=== PATIENT | female | born 1995 | race Caucasian/White ===

== ENCOUNTER 2016-03-21 13:58 | Emergency (ER) | payer OTHER ==
[2016-03-21 15:43] VITALS: BP 127/61
--- NOTE | 2016-03-21 16:54 | UC ---
FLU HPI - HPI Summary HPI Summary: sick since yesterday with irritating, productive cough and body aches. Headache. Malaise. At [facility], epidemic flu there. No flu shot. Mild ST. - History of Current Complaint Chief Complaint: UCRespiratory Stated Complaint: ACHY,COUGH,SORE THROAT,FEVER Time Seen by Provider: 03/21/16 16:44 Hx Obtained From: Patient Hx Last Menstrual Period: 03/21/16 Onset/Duration: Gradual Onset Severity Currently: Mild Severity Initially: Mild Associated Signs & Symptoms: Positive: T Max - 99.9, Cough, Sore Throat, Nasal Congestion, Headache Related Hx: Possible Flu/Infectious Exposure - Risk Factors Influenza Risk Factors: Negative - Allergy/Home Medications Allergies/Adverse Reactions: Allergies Allergy/AdvReac Type Severity Reaction Status Date / Time No Known Allergies Allergy Verified 03/21/16 15:43 Home Medications: Home Medications Acetaminophen TAB* [Tylenol TAB*] 650 mg PO Q4H PRN 03/21/16 [History Confirmed 03/21/16] Control 1 tab PO DAILY 03/21/16 [History Confirmed 03/21/16] Ibuprofen TAB* [Motrin TAB* 600 MG] 600 mg PO Q6H PRN 03/21/16 [History Confirmed 03/21/16] PMH/Surg Hx/FS Hx/Imm Hx Previously Healthy: Yes - Surgical History Surgical History: None - Family History Known Family History: Negative: Respiratory Disease - Social History Occupation: Student Lives: Alone - dorm Alcohol Use: Occasionally Substance Use Type: None Smoking Status (MU): Never Smoked Tobacco Review of Systems Constitutional: Fever, Chills, Fatigue Skin: Negative Eyes: Negative ENT: Sore Throat, Nasal Discharge Respiratory: Cough Cardiovascular: Negative Gastrointestinal: Negative Genitourinary: Negative Motor: Negative Neurovascular: Negative Musculoskeletal: Myalgia Neurological: Headache, Weakness Psychological: Negative All Other Systems Reviewed And Are Negative: Yes Physical Exam Triage Information Reviewed: Yes Appearance: Well-Appearing, No Pain Distress, Well-Nourished Vital Signs: Initial Vital Signs Temp 98.6 F 03/21/16 15:41 Pulse 104 03/21/16 15:41 Resp 16 03/21/16 15:41 BP 127/61 03/21/16 15:41 Pulse Ox 100 03/21/16 15:41 Vital Signs Reviewed: Yes Eye Exam: Normal Eyes: Positive: Conjunctiva Clear ENT: Positive: Hearing grossly normal, Pharynx normal, Nasal congestion, TMs normal, Tonsillar swelling - mild. Negative: TM bulging, TM dull, TM red, Tonsillar exudate, Trismus, Muffled/hoarse voice Neck exam: Normal Respiratory Exam: Normal Respiratory: Positive: Lungs clear, Normal breath sounds Cardiovascular Exam: Normal Musculoskeletal Exam: Normal Neurological Exam: Normal Psychological Exam: Normal Skin Exam: Normal Diagnostics - Laboratory Diagnostic Studies Completed/Ordered: fluA pos Flu Course/Dx - Differential Dx/Diagnosis Differential Diagnosis/HQI/PQRI: Influenza, Upper Respiratory Infection Provider Diagnoses: influenza Discharge - Discharge Plan Condition: Stable Disposition: HOME Prescriptions: Benzonatate CAP* [Tessalon CAP*] 100 mg PO TID PRN #30 cap PRN Reason: Cough Patient Education Materials: Influenza (ED) Forms: *School Release Referrals: No Primary Care Phys,NOPCP [Primary Care Provider] -
== END 2016-03-21 17:25 | disposition home or self-care (01) ==
LOC: UCCORT 13:58
DX: J11.1 Influenza due to unidentified influenza virus with other respiratory manifestations (principal)
CPT/HCPCS: 99202; G0463

== ENCOUNTER 2017-04-01 17:32 | Emergency (ER) | payer OTHER ==
[2017-04-01 18:18] VITALS: BP 117/64
--- NOTE | 2017-04-01 19:31 | UC ---
Throat Pain/Nasal Mayo HPI - HPI Summary HPI Summary: 21 y/o female presents to the urgent care c/o sore throat, ALSTON and body aches for the past 4 days. Mild non productive cough w/ chills at times. Pain is 7/ 10 w/ swallowing associated w/ decrease appetite. She is UTD w/ all vaccines. Pt has taken Tylenol PO to alleviate symptoms. Pt dneis SOB, chest pain, abdominal pain, N/V/D - History of Current Complaint Chief Complaint: UCRespiratory Stated Complaint: SORE THROAT Time Seen by Provider: 04/01/17 19:30 Hx Obtained From: Patient Hx Last Menstrual Period: 03/18/17 ?: No Onset/Duration: Gradual Onset, Lasting Days - 4 days, Still Present, Worse Since - yesterday Severity: Moderate Pain Intensity: 7 Pain Scale Used: 0-10 Numeric Cough: Nonproductive Associated Signs & Symptoms: Positive: Dysphagia, Fever - Epiglottits Risk Factors Epiglottis Risk Factors: Negative - Allergies/Home Medications Allergies/Adverse Reactions: Allergies Allergy/AdvReac Type Severity Reaction Status Date / Time No Known Allergies Allergy Verified 04/01/17 18:10 Home Medications: Home Medications Oral Contraceptive 1 tab PO DAILY 04/01/17 [History] PMH/Surg Hx/FS Hx/Imm Hx Previously Healthy: Yes - Pt denies PMHX - Surgical History Surgical History: Yes Surgery Procedure, Year, and Place: T& A 09/2016 - Family History Known Family History: Positive: Unknown - adopted Negative: Respiratory Disease - Social History Occupation: Student Lives: With Family Alcohol Use: Occasionally Substance Use Type: None Smoking Status (MU): Never Smoked Tobacco Review of Systems Constitutional: Fever, Chills Skin: Negative Eyes: Negative ENT: Sore Throat Respiratory: Cough Cardiovascular: Negative Gastrointestinal: Negative Genitourinary: Negative Motor: Negative Neurovascular: Negative Musculoskeletal: Negative Neurological: Headache Psychological: Negative Is Patient Immunocompromised?: No All Other Systems Reviewed And Are Negative: Yes Physical Exam Triage Information Reviewed: Yes Vital Signs: Initial Vital Signs Temp 98.6 F 04/01/17 18:12 Pulse 85 04/01/17 18:12 Resp 18 04/01/17 18:12 BP 117/64 04/01/17 18:12 Pulse Ox 99 04/01/17 18:12 - Additional Comments VITAL SIGNS: Reviewed. GENERAL: Patient is a well developed and nourished female who is sitting comfortable in the examining table. Patient is not in any acute respiratory distress. HEAD AND FACE: No signs of trauma. No ecchymosis, hematomas or skull depressions. No sinus tenderness. EYES: PERRLA, EOMI x 2, No injected conjunctiva, no nystagmus. No photophobia. EARS: Hearing grossly intact. Ear canals and tympanic membranes are within normal limits. MOUTH: Positive pharynx with erythema, no exudates, mild palatal erythema, No B/ L tonsils observed. Uvula in midline. NECK: Supple, trachea is midline, Positive anterior cervical lymphadenopathy, no JVD, no carotid bruit, no c-spine tenderness, neck with full ROM. No meningeal signs, no Kernig's or brudzinskis signs. CHEST: Symmetric, no tenderness at palpation LUNGS: Clear to auscultation bilaterally. No wheezing or crackles. CVS: Regular rate and rhythm, S1 and S2 present, no murmurs or gallops appreciated. ABDOMEN: Soft, non-tender. No signs of distention. No rebound no guarding, and no masses palpated. Bowel sounds are normal. EXTREMITIES: FROM in all major joints, no edema, no cyanosis or clubbing. NEURO: Alert and oriented x 3. No acute neurological deficits. Speech is normal and follows commands. SKIN: Dry and warm Throat Pain/Nasal Course/Dx - Course Course Of Treatment: 21 y/o female presents to the urgent care c/o sore throat, ALSTON and body aches for the past 4 days. Mild non productive cough w/ chills at times. Pain is 4/10 w/ swallowing associated w/ decrease appetite. She is UTD w / all vaccines. Pt has taken Tylenol PO to alleviate symptoms. Pt dneis SOB, chest pain, abdominal pain, N/V/D. Hx obtained. Pt w/ pharyngitis on examination.Rapid strep ordered, result: negative. Viral pharyngitis.Pt Rx ibuprofen PO to alleviates symptoms of pain and swelling. Advised on hand washing to avoid spreading. Pt advised to rest, eat well and avoid strenuous exercise. If symptoms do not improve or worsen advised to return to the urgent care or f/u with her PCP for further evaluation and treatment. Pt understood and agreed - Differential Dx/Diagnosis Differential Diagnosis/HQI/PQRI: Influenza, Laryngitis, Mononucleosis, Pharyngitis, Tonsillitis, URI Provider Diagnoses: 1- Viral pharyngitis Discharge - Discharge Plan Condition: Stable Disposition: HOME Prescriptions: Ibuprofen TAB* [Motrin TAB* 600 MG] 600 mg PO Q6H PRN #20 tab PRN Reason: Sore Throat Patient Education Materials: Pharyngitis (ED) Referrals: [facility] [place] [facility] [Outside] - If Needed Non Staff,Doctor [Primary Care Provider] - Additional Instructions: 1-Please take ibuprofen PO q6-8hrs prn as instructed after meals to alleviate pain and swelling. Increase fluid intake, eat well, rest and avoid strenuous exercise 2-If symptoms do not improve or worsen please return to the urgent care or f/u with your PCP for further evaluation and treatment.
== END 2017-04-01 19:50 | disposition home or self-care (01) ==
LOC: UCCORT 17:32
DX: J02.8 Acute pharyngitis due to other specified organisms (principal)
CPT/HCPCS: 87651; 99212; G0463